=== PATIENT | male | born 1990 | race Caucasian/White ===

== ENCOUNTER 2018-10-04 21:38 | Emergency (ER) | payer MEDICAID, OTHER ==
[~2018-10-04] VITALS: Ht 172.7 cm; Wt 91.0 kg
[~2018-10-04 21:38] MED LIST: DAYQUIL; MOTRIN; TYLENOL
[2018-10-04 21:45] VITALS: BP 118/85
== END 2018-10-05 01:29 | disposition left against medical advice (07) ==
LOC: ER 21:47
DX: Z53.21 Procedure and treatment not carried out due to patient leaving prior to being seen by health care provider (principal)

== ENCOUNTER 2018-11-29 12:22 | Emergency (ER) | payer OTHER ==
[~2018-11-29] VITALS: Ht 170.2 cm; Wt 89.0 kg
[2018-11-29] MEDS ORDERED: IBUPROFEN 600MG TABLET PO ONE (13:00)
[2018-11-29] MEDS ORDERED: ACETAMINOPHEN WITH CODEINE 300/30MG TABLET PO ONE (13:00)
[2018-11-29 15:02] VITALS: BP 132/78
== END 2018-11-29 15:02 | disposition home or self-care (01) ==
LOC: ER 12:22
DX: S06.0X0A Concussion without loss of consciousness, initial encounter (principal); S00.83XA Contusion of other part of head, initial encounter; Y93.89 Activity, other specified; Y92.89 Other specified places as the place of occurrence of the external cause; Y99.8 Other external cause status
CPT/HCPCS: 70486; 99284